=== PATIENT | male | born 1950 | race Caucasian/White ===

== ENCOUNTER 2023-02-04 14:15 | Emergency (ER) | payer OTHER ==
--- NOTE | 2023-02-04 15:37 | EDPHYS ---
Physician Documentation [facility] Name: Cb Ham Age: 72 yrs Sex: Male : 1950 Arrival Date: 02/04/2023 Time: 14:15 Bed 10 Private MD: Heber Davila T ED Physician Cole Yoder HPI: 02/04 16:02 This 72 yrs old Male presents to ER via Ambulatory with complaints of Insect Bite, Hip snw Pain. 16:02 The patient presents with pain, that is acute, pt states he was bitten by something on snw his left anterior thigh. Went to an ED yesterday and rec'd pepcid, zyrtec, prednisone. Pt is concerned re: infection as he has a left knee replacement. No heat, redness, or decrease in ROM of left knee. Vesicle on upper left anterior thigh ruptured and skin avulsed like a skin tear.. Historical: - Allergies: 14:22 No Known Allergies; ll1 - PSHx: 14:22 L knee replacment; ll1 - Immunization history:: Client reports receiving the 2nd dose of the Covid vaccine. - Social history:: Smoking status: Patient denies any tobacco usage or history of. ROS: 16:04 Constitutional: Negative for fever, chills, and weight loss, Eyes: Negative for injury, snw pain, redness, and discharge, ENT: Negative for injury, pain, and discharge, Neck: Negative for injury, pain, and swelling, Cardiovascular: Negative for chest pain, palpitations, and edema, Respiratory: Negative for shortness of breath, cough, wheezing, and pleuritic chest pain, Abdomen/GI: Negative for abdominal pain, nausea, vomiting, diarrhea, and constipation, Back: Negative for injury and pain, : Negative for injury, bleeding, discharge, and swelling, Neuro: Negative for headache, weakness, numbness, tingling, and seizure, Psych: Negative for depression, anxiety, suicide ideation, homicidal ideation, and hallucinations. 16:04 MS/extremity: Positive for pain, swelling, tenderness, of the left upper thigh. 16:05 MS/extremity: Positive for pain, to all joints. snw Exam: 16:05 Constitutional: This is a well developed, well nourished patient who is awake, alert, snw and in no acute distress. Head/Face: Normocephalic, atraumatic. Eyes: Pupils equal round and reactive to light, extra-ocular motions intact. Lids and lashes normal. Conjunctiva and sclera are non-icteric and not injected. Cornea within normal limits. Periorbital areas with no swelling, redness, or edema. ENT: Nares patent. No nasal discharge, no septal abnormalities noted. Tympanic membranes are normal and external auditory canals are clear. Oropharynx with no redness, swelling, or masses, exudates, or evidence of obstruction, uvula midline. Mucous membranes moist. Neck: Trachea midline, no thyromegaly or masses palpated, and no cervical lymphadenopathy. Supple, full range of motion without nuchal rigidity, or vertebral point tenderness. No Meningismus. Cardiovascular: Regular rate and rhythm with a normal S1 and S2. No gallops, murmurs, or rubs. Normal PMI, no JVD. No pulse deficits. Respiratory: Lungs have equal breath sounds bilaterally, clear to auscultation and percussion. No rales, rhonchi or wheezes noted. No increased work of breathing, no retractions or nasal flaring. Back: No spinal tenderness. No costovertebral tenderness. Full range of motion. MS/ Extremity: Pulses equal, no cyanosis. Neurovascular intact. Full, normal range of motion. Neuro: Awake and alert, GCS 15, oriented to person, place, time, and situation. Cranial nerves II-XII grossly intact. Motor strength 5/5 in all extremities. Sensory grossly intact. Cerebellar exam normal. Normal gait. Psych: Awake, alert, with orientation to person, place and time. Behavior, mood, and affect are within normal limits. 16:05 Skin: Appearance: normal except for affected area, injury, avulsion(s), a small of the left upper thigh, area avulsed like a skin tear where there was previously a vesicle. Vital Signs: 14:23 BP 164 / 99; Pulse 100; Resp 18; Temp 98.7; Pulse Ox 98% ; Weight 72.57 kg; Height 5 ll1 ft. 6 in. ; Pain 5/10; 14:23 Body Mass Index 25.82 (72.57 kg, 167.64 cm) ll1 14:23 Pain Scale: Adult ll1 MDM: 14:23 Patient medically screened. snw 16:01 Differential diagnosis: abrasion, laceration, ruptured vesicle. Data reviewed: vital snw signs, nurses notes. Counseling: I had a detailed discussion with the patient and/or guardian regarding: the historical points, exam findings, and any diagnostic results supporting the discharge/admit diagnosis, the presence of at least one elevated blood pressure reading (>120/80) during this emergency department visit, the need for outpatient follow up, for definitive care, to return to the emergency department if symptoms worsen or persist or if there are any questions or concerns that arise at home. Special discussion: Based on the history and exam findings, there is no indication for further emergent testing or inpatient evaluation. I discussed with the patient/guardian the need to see the primary care provider for further evaluation of the symptoms. 16:06 Differential diagnosis: contusion, tendonitis, cellulitis, polyrheumatica. snw Administered Medications: 15:35 Drug: Hibiclens Topical Liquid 4 % 1 application Route: Topical; Site: affected area; snw 15:39 Drug: Mupirocin Topical Ointment 2 % 1 application Route: Topical; Site: affected area; cm10 15:54 Drug: HYDROcodone-acetaminophen PO 5 mg-325 mg 1 tabs Route: PO; cm10 16:30 Follow up: Response: No adverse reaction aa5 Disposition Summary: 02/04/23 15:36 Discharge Ordered Location: Home snw Condition: Stable snw Diagnosis - Disorder of the skin and subcutaneous tissue, unspecified snw Followup: snw - With: Emergency Department - When: As needed - Reason: Worsening of condition Followup: snw - With: Heber Davila MD - When: 2 - 3 days - Reason: Recheck today's complaints, Continuance of care, Re-evaluation by your physician Discharge Instructions: - Discharge Summary Sheet snw - Skin Tear snw Forms: - Medication Reconciliation Form snw - Thank You Letter snw - Antibiotic Education snw - Prescription Opioid Use snw Prescriptions: - mupirocin 2 % Topical ointment - apply 1 application by TOPICAL route 2 times per day for 7 days; 15 gram; snw Refills: 0, Product Selection Permitted - orphenadrine citrate 100 mg Oral Tablet Sustained Release - take 1 tablet by ORAL route 2 times per day As needed; 20 tablet; Refills: 0, snw Product Selection Permitted Signatures: Urrutia, Brittney, CORPORATE QUALITY ASSURANCE MANAGER-C CORPORATE QUALITY ASSURANCE MANAGER-Csnw Rene Adams, RN RN ll1 Aura Max, RN RN cm10 Alice Kumar RN aa5
--- NOTE | 2023-02-04 15:37 | ER ---
Nurse's Notes [facility] Name: Cb Ham Age: 72 yrs Sex: Male : 1950 Arrival Date: 02/04/2023 Time: 14:15 Bed 10 Private MD: Heber Davila T Diagnosis: Disorder of the skin and subcutaneous tissue, unspecified Presentation: 02/04 14:23 Chief complaint: Patient states: L thigh abscess noticed Sunday. Went to ER in [place] [address] for SOB, spasms yesterday. Coronavirus screen: Vaccine status: Patient reports receiving the 2nd dose of the covid vaccine. Client denies travel out of the [place] in the last 14 days. At this time, the client does not indicate any symptoms associated with coronavirus-19. Ebola Screen: Patient denies travel to an Ebola-affected area in the 21 days before illness onset. Initial Sepsis Screen: Does the patient meet any 2 criteria? No. Patient's initial sepsis screen is negative. Does the patient have a suspected source of infection? Yes: Skin breakdown/wound. Risk Assessment: Do you want to hurt yourself or someone else? Patient reports no desire to harm self or others. Onset of symptoms was February 02, 2023. 14:23 Method Of Arrival: Ambulatory [facility] 14:23 Acuity: JIM 4 ll1 Triage Assessment: 14:27 Bite description: bite sustained to L thigh by an unknown animal, animal information: ll1 vaccination(s) is unknown. General: Appears uncomfortable, Behavior is calm, cooperative, appropriate for age. Pain: Complains of pain in L thigh Quality of pain is described as aching. Derm: Abscess located on L thigh is nickel sized, has clear drainage, is red. Historical: - Allergies: 14:22 No Known Allergies; ll1 - PSHx: 14:22 L knee replacment; ll1 - Immunization history:: Client reports receiving the 2nd dose of the Covid vaccine. - Social history:: Smoking status: Patient denies any tobacco usage or history of. Screenin:44 [facility] ED Fall Risk Assessment (Adult) History of falling in the last 3 months, cm10 including since admission No falls in past 3 months (0 pts) Confusion or Disorientation No (0 pts) Intoxicated or Sedated No (0 pts) Impaired Gait No (0 pts) Mobility Assist Device Used No (0 pt) Altered Elimination No (0 pt) Score/Fall Risk Level 0 - 2 = Low Risk. [facility] ED Fall Risk Assessment (Adult) Score/Fall Risk Level 0 - 2 = Low Risk Oriented to surroundings, Maintained a safe environment, Educated pt \T\ family on fall prevention, incl call for assistance when getting out of bed. Abuse screen: Denies threats or abuse. Denies injuries from another. Nutritional screening: No deficits noted. Tuberculosis screening: No symptoms or risk factors identified. Assessment: 14:43 General: Appears in no apparent distress. comfortable, Behavior is calm, cooperative. cm10 Neuro: No deficits noted. Level of Consciousness is awake, alert, Oriented to person, place, time, situation. Respiratory: No deficits noted. Airway is patent Respiratory effort is even, unlabored, Respiratory pattern is regular, symmetrical. Derm: Skin unknown animal bite to left thight Skin is pink, warm \T\ dry. 16:30 Reassessment: Patient is alert, oriented x 3, equal unlabored respirations, skin aa5 warm/dry/pink. Vital Signs: 14:23 BP 164 / 99; Pulse 100; Resp 18; Temp 98.7; Pulse Ox 98% ; Weight 72.57 kg; Height 5 ll1 ft. 6 in. ; Pain 5/10; 14:23 Body Mass Index 25.82 (72.57 kg, 167.64 cm) ll1 14:23 Pain Scale: Adult ll1 ED Course: 14:16 Patient arrived in ED. im 14:17 Heber Davila MD is Private Physician. im 14:18 Brittney Urrutia FNP-C is [facility]. snw 14:18 Cole Yoder MD is Attending Physician. snw 14:22 Arm band placed on. ll1 14:24 Triage completed. ll1 14:25 Aura Max, ITZEL is Primary Nurse. cm10 15:36 Heber Davila MD is Referral Physician. snw 16:30 No provider procedures requiring assistance completed. Patient did not have IV access aa5 during this emergency room visit. Administered Medications: 15:35 Drug: Hibiclens Topical Liquid 4 % 1 application Route: Topical; Site: affected area; snw 15:39 Drug: Mupirocin Topical Ointment 2 % 1 application Route: Topical; Site: affected area; cm10 15:54 Drug: HYDROcodone-acetaminophen PO 5 mg-325 mg 1 tabs Route: PO; cm10 16:30 Follow up: Response: No adverse reaction aa5 Medication: 16:30 VIS not applicable for this client. aa5 Outcome: 15:36 Discharge ordered by . dre 16:30 Discharged to home ambulatory, with family. aa5 16:30 Condition: stable 16:30 Discharge instructions given to patient, Instructed on discharge instructions, follow up and referral plans. medication usage, Demonstrated understanding of instructions, follow-up care, medications, Prescriptions given X 2. 16:31 Patient left the ED. aa5 Signatures: Brittney Urrutia, TELEPHONE WORKER-C TELEPHONE WORKER-Omariw Alice Kumar, RN RN aa5 Rene Adams RN RN ll1 Jaqueline Cortés Clarissa, RN RN cm10 Corrections: (The following items were deleted from the chart) 14:28 14:27 Derm: Abscess located on L thigh is nickel sized, has purulent drainage, is red, ll1 ll1
[2023-02-04] MEDS ORDERED: MUPIROCIN 2% OINT 22GM TUBE TOP ONE (15:47)
[2023-02-04] MEDS ORDERED: HYDROCODONE/APAP 5/325 MG TAB ONE (15:55)
[2023-02-04 16:37] VITALS: BP 164/99; TEMP 98.7; O2SAT 98
== END 2023-02-04 16:31 | disposition home or self-care (01) ==
LOC: ER 14:15
DX: S71.152A Open bite, left thigh, initial encounter (principal); Z96.652 Presence of left artificial knee joint
CPT/HCPCS: 99283